=== PATIENT | male | born 1990 | race Two or more races ===

== ENCOUNTER 2024-03-27 10:31 | Emergency (ER) | payer MEDICAID ==
[2024-03-27 11:13] LABS: BASOPHILS ABSOLUTE AUTO 0.03 10^3/uL (0.00-0.50); BASOPHILS PERCENT AUTO 0.5 % (0-1); EOSINOPHILS PERCENT AUTO 1.8 % (0-6); HEMATOCRIT 46.7 % (42.0-52.0); HEMOGLOBIN 15.9 g/dL (14.0-18.0); LYMPHOCYTES ABSOLUTE AUTO 1.57 10^3/uL (0.60-5.00); MEAN CORPUSCULAR HEMOGLOBIN 31.4 pg (27.0-32.0); MEAN CORPUSCULAR VOLUME 92.3 fL (83.0-97.0); MONOCYTES ABSOLUTE AUTO 0.36 10^3/uL (0.00-1.50); MONOCYTES PERCENT AUTO 6.4 % (0-10); NEUTROPHILS ABSOLUTE AUTO 3.55 x10^3/uL (1.80-8.00); NEUTROPHILS PERCENT AUTO 63.3 % (41-71); PLATELET COUNT,PLT 233 10^3/uL (150-400); RED BLOOD CELL COUNT 5.06 x10^6/uL (4.50-6.00); WHITE BLOOD CELL COUNT,WBC 5.6 10^3/uL (4.0-11.0)
[2024-03-27 11:22] LABS: APPEARANCE,URINE CLEAR (CLEAR); BILIRUBIN,URINE NEGATIVE (NEGATIVE); COLOR,URINE LIGHT YELLOW (YELLOW); GLUCOSE,URINE NEGATIVE (NEGATIVE); KETONES,URINE NEGATIVE (NEGATIVE); LEUKOCYTE ESTERASE,URINE NEGATIVE (NEGATIVE); NITRITE,URINE NEGATIVE (NEGATIVE); OCCULT BLOOD,URINE NEGATIVE (NEGATIVE); PH,URINE 7.5 (4.5-8.0); PROTEIN,URINE NEGATIVE (NEGATIVE); UROBILINOGEN,URINE 0.2 EU/dL (0.2-1.0)
[2024-03-27 11:26] LABS: ALANINE AMINOTRANSFERASE,ALT 17 U/L (12-78); ALBUMIN 4.5 g/dL (3.4-5.0); ALKALINE PHOSPHATASE 88 U/L (46-116); ASPARTATE AMNIOTRANSFERASE,AST 15 U/L (15-37); BILIRUBIN TOTAL 0.7 mg/dL (0.0-1.0); BLOOD UREA NITROGEN,BUN 11 mg/dL (7-18); CALCIUM 9.5 mg/dL (8.4-10.1); CARBON DIOXIDE,CO2 33 mmol/L (21-32); CHLORIDE,CL 105 mEq/L (98-106); EST CRCL DRUG DOSING (CG) 107.03 mL/min; ESTIMATED GFR 103 mL/min (>=60); GLUCOSE RANDOM 95 mg/dL (75-99); LIPASE 19 U/L (16-77); POTASSIUM,K 4.5 mEq/L (3.5-5.0); PROTEIN TOTAL,TP 7.8 g/dL (6.4-8.2); SODIUM,NA 143 mEq/L (136-145)
[2024-03-27 11:27] LABS: C-REACTIVE PROTEIN < 0.50 mg/dL (<=0.50)
== END 2024-03-27 11:35 | disposition home or self-care (01) ==
LOC: CC.ED 10:31
DX: K52.9 Noninfective gastroenteritis and colitis, unspecified (principal)
CPT/HCPCS: 36415; 80053; 81003; 83690; 85025; 86140; 99284